=== PATIENT | male | born 1980 | race Hispanic/Latino ===

== ENCOUNTER 2016-10-19 09:21 | Day surgery (SDC) | payer MEDICARE, BC, MEDICAID ==
[2016-10-09 09:17] VITALS: BMI 23.0
[2016-10-19] MEDS ORDERED: Propofol 10 mg/ml Inj (20 ML) ONE (11:17)
[2016-10-19] MEDS ORDERED: Lactated Ringer's 1,000 ML IV SCH (12:00)
[2016-10-19 12:58] VITALS: BP 122/67; RESP 18; TEMP 97.2; O2SAT 98
[2016-10-19 13:31] VITALS: PULSE 60
== END 2016-10-19 13:29 | disposition home or self-care (01) ==
LOC: ENDO 09:21
PROVIDERS: ATTEND Internal Medicine Gastroenterology
DX: K21.9 Gastro-esophageal reflux disease without esophagitis (principal); K29.50 Unspecified chronic gastritis without bleeding; K25.9 Gastric ulcer, unspecified as acute or chronic, without hemorrhage or perforation; K31.9 Disease of stomach and duodenum, unspecified; I10 Essential (primary) hypertension
CPT/HCPCS: 43239; 88305; 88342; J2704; J7040; J7120